=== PATIENT | male | born 2000 | race Caucasian/White ===

== ENCOUNTER 2019-03-17 11:55 | Emergency (ER) | payer OTHER ==
[2019-03-17 12:10] VITALS: BMI 31.1
[2019-03-17] MEDS ORDERED: PANTOPRAZOLE SODIUM 40 MG VIAL IVPUSH ONE (12:26)
[2019-03-17] MEDS ORDERED: SODIUM CHLORIDE 1,000 ML IV STA (12:26)
[2019-03-17] MEDS ORDERED: KETOROLAC TROMETHAMINE 30 MG/1 ML VIAL IVPUSH ONE (12:26)
[2019-03-17] MEDS ORDERED: ONDANSETRON 4 MG/2 ML VIAL IVPUSH ONE (12:26)
--- NOTE | 2019-03-17 12:36 | PDOC ---
History of Present Illness - General Chief Complaint: Nausea/Vomiting Stated Complaint: GERD/ VOMITING Time Seen by Provider: 03/17/19 12:10 History Source: Patient, Unavil. due to pt. cond. - History of Present Illness Travel History: No Initial Comments: 03/17/19 13:00 27-year-old male presents to ED with sudden onset of nausea vomiting now with generalized abdominal cramping since last night. Patient denies fever, chills recent travel recent illness. Patient states he did eat at a restaurant and had meat and unsure if he ate something bad. No other complaints presently Timing/Duration: reports: changing over time Quality: reports: mild, burning Abdominal Pain Onset Location: reports: epigastric Past History - Travel Traveled outside of the country in the last 30 days: No Close contact w/someone who was outside of country & ill: No - Past Medical History Allergies/Adverse Reactions: Allergies Allergy/AdvReac Type Severity Reaction Status Date / Time No Known Allergies Allergy Verified 03/17/19 12:08 Home Medications: Ambulatory Orders Methylphenidate HCl [Concerta] 36 mg PO DAILY 06/08/13 Naproxen [Naprosyn -] 500 mg PO BID PRN #14 tablet 12/06/15 COPD: No - Immunization History Immunization Up to Date: Yes - Psycho Social/Smoking Cessation Hx Smoking History: Never smoked Hx Alcohol Use: No Drug/Substance Use Hx: No Patient Lives Alone: No Lives with/in: parents Review of Systems - Review of Systems Able to Perform ROS?: No Is the patient limited Sen[place]e proficient: No Constitutional: Yes: Loss of Appetite, Weakness HEENTM: No: Symptoms Reported Respiratory: No: Symptoms reported Cardiac (ROS): No: Symptoms Reported ABD/GI: Yes: Constipated, Diarrhea, Nausea, Poor Appetite, Vomiting. No: Poor Fluid Intake, Abdominal cramping : No: Symptoms Reported Musculoskeletal: No: Symptoms Reported Integumentary: No: Symptoms Reported Neurological: No: Symptoms reported Hematologic/Lymphatic: No: Symptoms Reported *Physical Exam - Vital Signs Last Vital Signs Temp Pulse Resp BP Pulse Ox 97.8 F 79 18 141/81 98 03/17/19 12:08 03/17/19 12:08 03/17/19 12:08 03/17/19 12:08 03/17/19 12:08 - Physical Exam General Appearance: Yes: Nourished, Appropriately Dressed. No: Apparent Distress HEENT: negative: Pale Conjunctivae Neck: positive: Supple Respiratory/Chest: positive: Lungs Clear, Normal Breath Sounds. negative: Respiratory Distress, Accessory Muscle Use Cardiovascular: positive: Regular Rhythm, Regular Rate. negative: Murmur Gastrointestinal/Abdominal: positive: Soft. negative: Tenderness Musculoskeletal: negative: CVA Tenderness Extremity: positive: Normal Inspection Integumentary: positive: Normal Color, Warm, Moist Neurologic: positive: Motor Strength 5/5 (Ambulatory) ED Treatment Course - LABORATORY CBC & Chemistry Diagram: 03/17/19 13:10 03/17/19 13:10 Medical Decision Making - Medical Decision Making 03/17/19 13:00 Chief complaint: Nausea vomiting generalized weakness since last night after eating at a fast food restaurant. Exam: Patient with no abdominal tenderness vital signs stable appears dry. Plan: Labs, fluids, antiemetics with reevaluation 03/17/19 14:55 Laboratory Tests 03/17/19 03/17/19 03/17/19 13:10 13:10 13:10 WBC 10.6 H Hgb 18.0 H Hct 53.3 H Absolute Neuts (auto) 9.6 H Neutrophils % 90.3 H Lymphocytes % 4.3 L Nucleated RBC % 1 H Sodium 137 Potassium 4.3 Chloride 104 Carbon Dioxide 24 Anion Gap 9 BUN 15.3 Creatinine 1.2 Magnesium 2.0 Total Bilirubin 1.5 H ALT 79 H Alkaline Phosphatase 135 H Total Protein 8.3 H Lipase 56 L Patient states feeling much better. Patient requesting to go home. Will discharge home with Zofran and strict instructions on what to look out for in regards to worsening symptoms Discharge - Discharge Information Problems reviewed: Yes Clinical Impression/Diagnosis: Nausea & vomiting Condition: Improved Disposition: HOME - Follow up/Referral Referrals: Tray Thomason MD [Primary Care Provider] - - Patient Discharge Instructions Patient Printed Discharge Instructions: DI for Nausea -- Adult Additional Instructions: Please follow a clear liquid diet today and may advance to bland food tomorrow. Take Zofran as needed for nausea. If your symptoms worsen including fever right upper quadrant pain or inability to tolerate anything by mouth, please return to the emergency room immediately. - Post Discharge Activity
[2019-03-17] MEDS ORDERED: ONDANSETRON 4 MG/2 ML VIAL ONE (12:42)
[2019-03-17] MEDS ORDERED: PANTOPRAZOLE SODIUM 40 MG/100 ML BAG IVPB ONE (12:43)
[2019-03-17] MEDS ORDERED: KETOROLAC TROMETHAMINE 30 MG/1 ML VIAL ONE (12:44)
[2019-03-17 13:38] LABS: BASO % 0.1 % (0-2.0); EOS % 0.5 % (0-4.5); HEMATOCRIT 53.3 % (35.4-49); LYMPH % 4.3 % (8-40); MCH 28.7 pg (25.7-33.7); MCHC 33.8 g/dl (32.0-35.9); MEAN PLT VOLUME 10.6 fl (7.5-11.1); MONO % 4.8 % (3.8-10.2); NEUT % 90.3 % (42.8-82.8); PLATELET COUNT 168 K/MM3 (134-434); RBC 6.27 M/mm3 (4.00-5.60); RDW 12.9 % (11.9-15.9); WHITE BLOOD COUNT 10.6 K/mm3 (4.0-10.0)
[2019-03-17 14:10] LABS: ALBUMIN 4.7 g/dl (3.4-5.0); BILIRUBIN,TOTAL 1.5 mg/dL (0.2-1); BLOOD UREA NITROGEN 15.3 mg/dL (7-18); CALCIUM 10.1 mg/dL (8.5-10.1); CREATININE 1.2 mg/dL (0.55-1.3); POTASSIUM 4.3 mmol/L (3.5-5.1); TOT PROT 8.3 g/dl (6.4-8.2)
[2019-03-17 15:09] VITALS: BP 114/70; PULSE 71; TEMP 99.2
== END 2019-03-17 15:11 | disposition home or self-care (01) ==
LOC: JER 11:55
PROC: 3E0333Z Introduction of Anti-inflammatory into Peripheral Vein, Percutaneous Approach (ICD-10-PCS; principal; 2019-03-17)
PROC: 3E033GC Introduction of Other Therapeutic Substance into Peripheral Vein, Percutaneous Approach (ICD-10-PCS; 2019-03-17)
DX: R11.2 Nausea with vomiting, unspecified (principal)
CPT/HCPCS: 36415; 80053; 83690; 83735; 85025; 99283-25; J7030